=== PATIENT | female | born 1990 | race Caucasian/White ===

== ENCOUNTER 2017-08-24 18:10 | Emergency (ER) | payer SELFPAY ==
[~2017-08-24] VITALS: Ht 162.6 cm; Wt 104.1 kg
[2017-08-24 19:52] VITALS: BP 121/77
== END 2017-08-25 00:30 | disposition left against medical advice (07) ==
LOC: ER 20:11
DX: Z53.21 Procedure and treatment not carried out due to patient leaving prior to being seen by health care provider (principal)